=== PATIENT | male | born 1990 | race Caucasian/White ===

== ENCOUNTER 2019-12-23 01:30 | Emergency (ER) | payer OTHER ==
[~2019-12-23] VITALS: Ht 180.3 cm; Wt 122.5 kg
[2019-12-23] MEDS ORDERED: HYDROCODON-ACE1 EAC7 PO (01:55)
[2019-12-23] MEDS ORDERED: TORADOL 10 MG T10 MG PO (01:55)
[2019-12-23] MEDS ORDERED: CYCLOBENZAPRINE5 MG PO (01:55)
[2019-12-23 02:11] VITALS: BP 162/89
== END 2019-12-23 02:14 | disposition home or self-care (01) ==
LOC: M.ERS 01:30
DX: S39.012A Strain of muscle, fascia and tendon of lower back, initial encounter (principal); F17.210 Nicotine dependence, cigarettes, uncomplicated; Z88.1 Allergy status to other antibiotic agents; X50.9XXA Other and unspecified overexertion or strenuous movements or postures, initial encounter; Y93.89 Activity, other specified; Y92.89 Other specified places as the place of occurrence of the external cause; Y99.8 Other external cause status